=== PATIENT | female | born 1940 | race Caucasian/White ===

== ENCOUNTER 2016-11-11 09:08 | Emergency (ER) | payer OTHER ==
[~2016-11-11] VITALS: Ht 152.4 cm; Wt 45.5 kg
[~2016-11-11 09:08] MED LIST: ACET325T33 PO; ASPI-727 PO; DICY20TA59 PO; DIPH25CA PO; ESOM20CA PO; GUAI-173 PO; HYDR-3010 PO; LANS30CA47 PO; OMEP20CA16 PO
[2016-11-11 09:12] VITALS: Ht 152.4 cm; Wt 45.5 kg
[2016-11-11] MEDS ORDERED: ACETAMINOPHEN 500 MG TAB PO STA (09:34)
[2016-11-11] MEDS ORDERED: ACET500C5 PO (09:37)
[2016-11-11] MEDS ORDERED: NAPR-260 PO (09:37)
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
== END 2016-11-11 10:28 | disposition home or self-care (01) ==
LOC: FTE 09:08
DX: M79.601 Pain in right arm (principal); Z79.82 Long term (current) use of aspirin
CPT/HCPCS: 99283

== ENCOUNTER 2017-07-15 13:41 | Emergency (ER) | END 2017-07-15 17:07 | disposition home or self-care (01) ==

== ENCOUNTER 2017-08-18 21:05 | Inpatient (IN) | END 2017-08-19 18:53 | disposition home or self-care (01) | DRG 880 ==

== ENCOUNTER 2017-12-31 10:23 | Emergency (ER) | END 2017-12-31 13:00 | disposition home or self-care (01) ==